=== PATIENT | male | born 1970 | race Caucasian/White ===

== ENCOUNTER 2020-02-18 14:24 | Emergency (ER) | payer BC ==
[2020-02-18] MEDS ORDERED: Ondansetron 4 MG/2 ML SDV IVPUSH ONE (15:02)
[2020-02-18] MEDS ORDERED: Sodium Chloride 0.9% 1,000 ML IV ONE (15:02)
--- NOTE | 2020-02-18 15:09 | EDM.PDOC ---
ED HPI GENERAL MEDICAL PROBLEM - General Chief Complaint: Respiratory Problem Stated Complaint: COVID + Time Seen by Provider: 02/18/20 14:54 Source of Information: Reports: Patient History Limitations: Reports: No Limitations - History of Present Illness INITIAL COMMENTS - FREE TEXT/NARRATIVE: This 49 yo male patient reports to the ED with increased shortness of breath, cough, nausea and vomiting. The patient reports his symptoms started about 2 weeks ago. The patient reports he tested positive for COVID-19 on 02/15/20. The patient reports he has been noticing increased symptoms over the past couple of days. The patient reports his older brother is currently in the ICU in [facility] due to COVID. The patient started taking Prednisone last evening, has used a nebulizer treatment at home (made him dizzy) and has used an inhaler several times with some symptom improvement. The patient reports increased shortness of breath when he has dry heaves. 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 [No Known Home Meds] 02/18/20 [History] Past Medical History HEENT History: Reports: None Cardiovascular History: Reports: None Respiratory History: Reports: None Gastrointestinal History: Reports: None Genitourinary History: Reports: None Musculoskeletal History: Reports: None Neurological History: Reports: Concussion, Head Trauma Psychiatric History: Reports: None Endocrine/Metabolic History: Reports: None Hematologic History: Reports: None Immunologic History: Reports: None Oncologic (Cancer) History: Reports: None Dermatologic History: Reports: None - Infectious Disease History Infectious Disease History: Reports: Chicken Pox - Past Surgical History Head Surgeries/Procedures: Reports: None HEENT Surgical History: Reports: THOMASIK Social & Family History - Tobacco Use Smoking Status *Q: Never Smoker Second Hand Smoke Exposure: No - Caffeine Use Caffeine Use: Reports: Coffee, Soda - Recreational Drug Use Recreational Drug Use: No ED ROS GENERAL - Review of Systems Review Of Systems: See Below Constitutional: Reports: Weakness, Fatigue HEENT: Reports: No Symptoms Respiratory: Reports: Shortness of Breath, Cough Cardiovascular: Reports: No Symptoms Endocrine: Reports: No Symptoms GI/Abdominal: Reports: Nausea, Vomiting : Reports: No Symptoms Musculoskeletal: Reports: No Symptoms Skin: Reports: No Symptoms Neurological: Reports: No Symptoms Psychiatric: Reports: No Symptoms Hematologic/Lymphatic: Reports: No Symptoms Immunologic: Reports: No Symptoms ED EXAM, GENERAL - Physical Exam Exam: See Below Exam Limited By: No Limitations General Appearance: Alert, WD/WN, Moderate Distress Eye Exam: Bilateral Eye: EOMI, Normal Inspection, PERRL Ears: Normal External Exam, Normal Canal, Hearing Grossly Normal, Normal TMs Nose: Normal Inspection, Normal Mucosa, No Blood Throat/Mouth: Normal Inspection, Normal Lips, Normal Teeth, Normal Gums, Normal Oropharynx, Normal Voice, No Airway Compromise Head: Atraumatic, Normocephalic Neck: Normal Inspection, Supple, Non-Tender, Full Range of Motion Respiratory/Chest: No Accessory Muscle Use, Chest Non-Tender, Rhonchi (faint throughout) Cardiovascular: Normal Peripheral Pulses, Regular Rate, Rhythm, No Edema, No Gallop, No JVD, No Murmur, No Rub GI/Abdominal: Normal Bowel Sounds, Soft, Non-Tender, No Organomegaly, No Distention, No Abnormal Bruit, No Mass, Pelvis Stable (Male) Exam: Deferred Rectal (Males) Exam: Deferred Back Exam: Normal Inspection, Full Range of Motion, NT Extremities: Normal Inspection, Normal Range of Motion, Non-Tender, Normal Capillary Refill, No Pedal Edema Neurological: Alert, Oriented, CN II-XII Intact, Normal Cognition, Normal Gait, Normal Reflexes, No Motor/Sensory Deficits Psychiatric: Normal Affect, Normal Mood Skin Exam: Warm, Dry, Intact, Normal Color, No Rash Lymphatic: No Adenopathy Course - Vital Signs Last Recorded V/S: Last Vital Signs Temp 38.7 C H 02/18/20 16:04 Pulse 99 02/18/20 14:31 Resp 16 02/18/20 14:31 BP 126/70 02/18/20 14:31 Pulse Ox 95 02/18/20 14:31 - Orders/Labs/Meds Orders: Active Orders 24 hr Category Date Time Status CULTURE BLOOD [BC] Stat Lab 02/18/20 15:01 Ordered Sodium Chloride 0.9% [Normal Saline] 1,000 ml Med 02/18/20 15:02 Active IV .BOLUS Medication Orders Sodium Chloride (Normal Saline) 1,000 mls @ 250 mls/hr IV .BOLUS ONE Stop: 02/18/20 19:01 Last Admin: 02/18/20 15:12 Dose: 250 mls/hr Documented by: PAT Labs: Laboratory Tests 02/18/20 02/18/20 02/18/20 Range/Units 15:10 15:10 15:10 WBC 5.5 (5.0-10.0) 10^3/uL RBC 5.43 (4.6-6.2) 10^6/uL Hgb 16.1 (14.0-18.0) g/dL Hct 44.8 (40.0-54.0) % MCV 82.5 (80-100) fL MCH 29.7 (27.0-34.0) pg MCHC 35.9 H (33.0-35.0) g/dL Plt Count 182 (150-450) 10^3/uL Neut % (Auto) 84.0 H (42.2-75.2) % Lymph % (Auto) 9.8 L (20.5-50.1) % [place] % (Auto) 6.2 (2-8) % Eos % (Auto) 0.0 L (1.0-3.0) % Baso % (Auto) 0.0 (0.0-1.0) % Sodium 137 (136-145) mmol/L Potassium 4.9 (3.5-5.1) mmol/L Chloride 101 (98-107) mmol/L Carbon Dioxide 27 (21-32) mmol/L Anion Gap 13.9 H (7-13) mEq/L BUN 21 H (7-18) mg/dL Creatinine 1.19 (0.70-1.30) mg/dL Est Cr Clr Drug Dosing 67.76 mL/min Estimated GFR (MDRD) > 60 BUN/Creatinine Ratio 17.6 (No establ ref range) Glucose 104 H (74-99) mg/dL Lactic Acid 1.2 (0.4-2.0) mmol/L Calcium 8.7 (8.5-10.1) mg/dL Total Bilirubin 1.5 H (0.2-1.0) mg/dL AST 56 H (15-37) U/L ALT 41 (16-63) U/L Alkaline Phosphatase 79 (46-116) U/L Total Protein 8.1 (6.4-8.2) g/dL Albumin 3.5 (3.4-5.0) g/dL Globulin 4.6 Albumin/Globulin Ratio 0.8 Meds: Medications Generic Name Dose Route Start Last Admin Trade Name Freq PRN Reason Stop Dose Admin Sodium Chloride 1,000 mls @ 250 mls/hr 02/18/20 15:02 02/18/20 15:12 Normal Saline IV 02/18/20 19:01 250 mls/hr .BOLUS ONE Administration Discontinued Medications Generic Name Dose Route Start Last Admin Trade Name Freq PRN Reason Stop Dose Admin Acetaminophen 650 mg 02/18/20 15:18 02/18/20 15:25 Tylenol PO 02/18/20 15:19 650 mg NOW ONE Administration Ondansetron HCl 4 mg 02/18/20 15:02 02/18/20 15:24 Zofran IVPUSH 02/18/20 15:03 4 mg ONETIME ONE Administration Departure - Departure Time of Disposition: 16:44 Disposition: DC/Tfer to Acute Hospital 02 Condition: Fair Clinical Impression: Multilobar lung infiltrate, Coronavirus infection, unspecified, Shortness of breath with exposure to COVID-19 virus - Discharge Information *PRESCRIPTION DRUG MONITORING PROGRAM REVIEWED*: Not Applicable *COPY OF PRESCRIPTION DRUG MONITORING REPORT IN PATIENT VIVEK: Not Applicable Referrals: PCP,None [Primary Care Provider] - Forms: Interfacility Transfer [facility] Care Plan Goals: Discussed the patient's history, examination, lab, and CT results with Dr. Greene. Dr. Greene accepted the patient for continued evaluation and management as an inpatient at [facility] in [place]. The patient will be transported by [facility]. Sepsis Event Note (ED) - Evaluation Sepsis Screening Result: Possible Sepsis Risk - Focused Exam Vital Signs: Vital Signs Temp Pulse Resp BP Pulse Ox 02/18/20 16:04 38.7 C H 02/18/20 15:18 38.7 C H 02/18/20 14:31 38.8 C H 99 16 126/70 95 - My Orders Last 24 Hours: My Active Orders 02/18/20 15:01 CULTURE BLOOD [BC] Stat 02/18/20 15:02 Sodium Chloride 0.9% [Normal Saline] 1,000 ml IV .BOLUS - Assessment/Plan Last 24 Hours: My Active Orders 02/18/20 15:01 CULTURE BLOOD [BC] Stat 02/18/20 15:02 Sodium Chloride 0.9% [Normal Saline] 1,000 ml IV .BOLUS
[2020-02-18] MEDS ORDERED: Acetaminophen 325 MG Tab PO ONE (15:18)
[2020-02-18 15:39] LABS: ANION GAP 13.9 mEq/L (7-13); CHLORIDE,CL 101 mmol/L (98-107); SODIUM,NA 137 mmol/L (136-145)
--- NOTE | 2020-02-18 16:15 | CT ---
EXAMINATION: Chest wo Cont SEX: Male AGE: 49 years CLINICAL HISTORY: 49-year-old 190 pound male complaining short of breath (SOB). Patient and his brother have tested "positive" for kline virus (Covid 19). O2 saturation 93% (on room air). Scan technique: Volume acquisition of data emergency unenhanced CT scan of the chest (bony thorax, lungs and mediastinum) obtained with the patient lying supine on the Siemens multi slice scanner [place], [place]. All data archived in the PACS system for storage, reformatting axial/sagittal/coronal planes and study (lung/mediastinal windows). Interpretation: ABNORMAL. 1. *Multilobar, groundglass consolidation without underlying air bronchograms, atelectasis or lobar collapse. 2. Normal cardiac silhouette. No pericardial effusion. 3. No pulmonary vascular congestion, alveolar edema or dependent pleural effusion. 4. No lung mass or significant hilar/mediastinal lymphadenopathy. 5. No pneumothorax or pneumomediastinum. Midline tracheobronchial airway unremarkable. 6. Mild kyphosis and hypertrophic spondylosis dorsal spine. Good bone mineral density appropriate to age and gender. 7. Gallbladder, unenhanced liver, stomach, spleen, pancreas and adrenal glands unremarkable i.e. negative. CONCLUSION: Abnormal CT appearance consistent with KLINE VIRUS INFECTION of the lungs. (Acute Pulmonary embolic disease with infarct a differential consideration)
[2020-02-18] MEDS ORDERED: Ketorolac 30 MG/ML SDV IVPUSH ONE (16:54)
== END 2020-02-18 17:37 ==
LOC: DL.ED 14:24
DX: U07.1 COVID-19 (principal); R91.8 Other nonspecific abnormal finding of lung field
CPT/HCPCS: 36415; 71250; 80053; 83605; 85025; 87040; 96361; 96374; 96375; 99285; A9270; J1885; J2405; J7030

== ENCOUNTER 2020-05-02 06:03 | Emergency (ER) | payer BC, OTHER ==
[2020-05-02] MEDS ORDERED: Acetaminophen 325 MG Tab PO ONE ×2 (06:27→06:43)
[2020-05-02] MEDS ORDERED: Sodium Chloride 0.9% 1,000 ML IV ONE (06:28)
[2020-05-02 07:00] LABS: PTT,PARTIAL THROMBOPLSTIN TIME 27.9 SEC (22.0-34.0)
[2020-05-02 07:02] LABS: ANION GAP 14.8 mEq/L (7-13); CHLORIDE,CL 102 mmol/L (98-107); SODIUM,NA 137 mmol/L (136-145)
[2020-05-02] MEDS ORDERED: Iopamidol 612 MG/ML 100 ML Bottle IVPUSH ONE (07:22)
--- NOTE | 2020-05-02 07:36 | EDM.PDOC ---
ED HPI GENERAL MEDICAL PROBLEM - General Chief Complaint: Gastrointestinal Problem Stated Complaint: 101.1* TEMP, BLOODY STOWLS, NAUSEA Time Seen by Provider: 05/02/20 07:15 Source of Information: Reports: Patient, RN, RN Notes Reviewed History Limitations: Reports: No Limitations - History of Present Illness INITIAL COMMENTS - FREE TEXT/NARRATIVE: Patient presents to ER with complaint of fever, muscle/body aches, abdominal bloating, and blood in the stool. Patient states the blood in the stool began Saturday morning while he was combining. Patient states he has had 4-5 stools a day with blood. States the fever began yesterday, muscle and body aches, chills. Patient denies history of colitis. States he was positive for COVID in February and hospitalized in ICU for that. Patient states some nausea and dry heaves yesterday, denies today. Denies severe abdominal pain, but admits to feeling of bloating. Patient was put on Xarelto after the COVID in February. Onset: Sudden Onset Date: 04/30/20 Duration: Constant, Getting Worse Location: Reports: Abdomen Generalized Pain Score (Numeric/FACES): 8 - Related Data Allergies Allergy/AdvReac Type Severity Reaction Status Date / Time No Known Allergies Allergy Verified 05/02/20 06:15 Home Meds: Home Meds Rivaroxaban [Xarelto] 10 mg PO DAILY 05/02/20 [History] Past Medical History HEENT History: Reports: None Cardiovascular History: Reports: None Respiratory History: Reports: None Gastrointestinal History: Reports: None Genitourinary History: Reports: None Musculoskeletal History: Reports: None Neurological History: Reports: Concussion, Head Trauma Psychiatric History: Reports: None Endocrine/Metabolic History: Reports: None Hematologic History: Reports: None Immunologic History: Reports: None Oncologic (Cancer) History: Reports: None Dermatologic History: Reports: None - Infectious Disease History Infectious Disease History: Reports: Novel Coronavirus - Past Surgical History Head Surgeries/Procedures: Reports: None HEENT Surgical History: Reports: ZACHARIAH Social & Family History - Tobacco Use Smoking Status *Q: Never Smoker Second Hand Smoke Exposure: No - Caffeine Use Caffeine Use: Reports: Coffee, Soda - Recreational Drug Use Recreational Drug Use: No ED ROS GENERAL - Review of Systems Review Of Systems: Comprehensive ROS is negative, except as noted in HPI. ED EXAM, GI/ABD - Physical Exam Exam: See Below Exam Limited By: No Limitations General Appearance: Alert, WD/WN, Mild Distress Eyes: Bilateral: Normal Appearance, EOMI Ears: Normal External Exam, Hearing Grossly Normal Nose: Normal Inspection Throat/Mouth: Normal Inspection, Normal Voice, No Airway Compromise Head: Atraumatic, Normocephalic Neck: Normal Inspection, Supple, Non-Tender, Full Range of Motion Respiratory/Chest: No Respiratory Distress, No Accessory Muscle Use, Chest Non- Tender, Wheezing (slight, right base) Cardiovascular: Normal Peripheral Pulses, Regular Rate, Rhythm, No Edema, No Gallop, No JVD, No Murmur, No Rub GI/Abdominal Exam: Normal Bowel Sounds, Soft, Non-Tender, No Organomegaly, No Distention, No Abnormal Bruit, No Mass, Pelvis Stable, Abnormal Bowel Sounds (hyperactive) (Male) Exam: Deferred Rectal (Males) Exam: Deferred Back Exam: Normal Inspection, Full Range of Motion, NT Extremities: Normal Inspection, Normal Range of Motion, Non-Tender, Normal Capillary Refill, No Pedal Edema Neurological: Alert, Oriented, CN II-XII Intact, Normal Cognition, Normal Gait, Normal Reflexes, No Motor/Sensory Deficits Psychiatric: Normal Affect, Normal Mood Skin Exam: Warm, Dry, Intact, Normal Color, No Rash Lymphatic: No Adenopathy Course - Vital Signs Last Recorded V/S: Last Vital Signs Temp 99.0 F 05/02/20 08:18 Pulse 108 H 05/02/20 06:07 Resp 18 05/02/20 06:07 BP 149/87 H 05/02/20 06:07 Pulse Ox 98 05/02/20 06:07 - Orders/Labs/Meds Orders: Active Orders 24 hr Category Date Time Status CULTURE BLOOD [BC] Stat Lab 05/02/20 06:30 Received CULTURE BLOOD [BC] Stat Lab 05/02/20 08:20 Received LACTATE SEPSIS W/ REFLEX [CHEM] Stat Lab 05/02/20 08:20 Received Blood Culture x2 Reflex Set [OM.PC] Stat Oth 05/02/20 08:51 Ordered Labs: Laboratory Tests 05/02/20 05/02/20 05/02/20 Range/Units 06:30 06:30 06:30 WBC 5.0 (5.0-10.0) 10^3/uL RBC 5.06 (4.6-6.2) 10^6/uL Hgb 15.1 (14.0-18.0) g/dL Hct 42.4 (40.0-54.0) % MCV 83.8 (80-100) fL MCH 29.8 (27.0-34.0) pg MCHC 35.6 H (33.0-35.0) g/dL Plt Count 156 (150-450) 10^3/uL Neut % (Auto) 82.8 H (42.2-75.2) % Lymph % (Auto) 8.4 L (20.5-50.1) % [place] % (Auto) 8.0 (2-8) % Eos % (Auto) 0.2 L (1.0-3.0) % Baso % (Auto) 0.6 (0.0-1.0) % PT (9.0-12.0) SEC INR (0.9-1.2) APTT (22.0-34.0) SEC D-Dimer, Quantitative 195 (0-400) ng/mL Sodium 137 (136-145) mmol/L Potassium 3.8 (3.5-5.1) mmol/L Chloride 102 (98-107) mmol/L Carbon Dioxide 24 (21-32) mmol/L Anion Gap 14.8 H (7-13) mEq/L BUN 14 (7-18) mg/dL Creatinine 1.04 (0.70-1.30) mg/dL Est Cr Clr Drug Dosing 76.68 mL/min Estimated GFR (MDRD) > 60 BUN/Creatinine Ratio 13.5 (No establ ref range) Glucose 114 H (74-99) mg/dL Lactic Acid (0.4-2.0) mmol/L Calcium 8.5 (8.5-10.1) mg/dL Total Bilirubin 2.0 H (0.2-1.0) mg/dL AST 24 (15-37) U/L ALT 47 (16-63) U/L Alkaline Phosphatase 78 (46-116) U/L Troponin I < 0.017 (0.000-0.056) ng/mL Total Protein 7.0 (6.4-8.2) g/dL Albumin 3.8 (3.4-5.0) g/dL Globulin 3.2 Albumin/Globulin Ratio 1.2 SARS CoV-2 RNA Rapid VIRGILIO (NEGATIVE) 05/02/20 05/02/20 05/02/20 Range/Units 06:30 06:30 06:40 WBC (5.0-10.0) 10^3/uL RBC (4.6-6.2) 10^6/uL Hgb (14.0-18.0) g/dL Hct (40.0-54.0) % MCV (80-100) fL MCH (27.0-34.0) pg MCHC (33.0-35.0) g/dL Plt Count (150-450) 10^3/uL Neut % (Auto) (42.2-75.2) % Lymph % (Auto) (20.5-50.1) % [place] % (Auto) (2-8) % Eos % (Auto) (1.0-3.0) % Baso % (Auto) (0.0-1.0) % PT 9.8 (9.0-12.0) SEC INR 1.0 (0.9-1.2) APTT 27.9 (22.0-34.0) SEC D-Dimer, Quantitative (0-400) ng/mL Sodium (136-145) mmol/L Potassium (3.5-5.1) mmol/L Chloride (98-107) mmol/L Carbon Dioxide (21-32) mmol/L Anion Gap (7-13) mEq/L BUN (7-18) mg/dL Creatinine (0.70-1.30) mg/dL Est Cr Clr Drug Dosing mL/min Estimated GFR (MDRD) BUN/Creatinine Ratio (No establ ref range) Glucose (74-99) mg/dL Lactic Acid 1.4 (0.4-2.0) mmol/L Calcium (8.5-10.1) mg/dL Total Bilirubin (0.2-1.0) mg/dL AST (15-37) U/L ALT (16-63) U/L Alkaline Phosphatase (46-116) U/L Troponin I (0.000-0.056) ng/mL Total Protein (6.4-8.2) g/dL Albumin (3.4-5.0) g/dL Globulin Albumin/Globulin Ratio SARS CoV-2 RNA Rapid VIRGILIO Negative (NEGATIVE) Meds: Medications Discontinued Medications Generic Name Dose Route Start Last Admin Trade Name Paramjit PRN Reason Stop Dose Admin Acetaminophen 650 mg 05/02/20 06:27 Tylenol PO 05/02/20 06:28 NOW ONE Acetaminophen 650 mg 05/02/20 06:43 05/02/20 06:48 Tylenol PO 05/02/20 06:44 650 mg NOW ONE Administration Sodium Chloride 1,000 mls @ 999 mls/hr 05/02/20 06:28 05/02/20 06:34 Normal Saline IV 05/02/20 07:28 999 mls/hr .BOLUS ONE Administration Metronidazole 500 mg/ Premix 100 mls @ 100 mls/hr 05/02/20 08:10 05/02/20 08:17 IV 05/02/20 09:09 100 mls/hr ONETIME ONE Administration Iopamidol 100 ml 05/02/20 07:22 05/02/20 07:41 Isovue-300 (61%) IVPUSH 05/02/20 07:23 75 ml ONETIME ONE Administration Departure - Departure Time of Disposition: 09:26 Disposition: Home, Self-Care 01 Condition: Fair Clinical Impression: Abdominal pain, Colitis - Discharge Information *PRESCRIPTION DRUG MONITORING PROGRAM REVIEWED*: No *COPY OF PRESCRIPTION DRUG MONITORING REPORT IN PATIENT VIVEK: No Instructions: Abdominal Pain, Adult, [id number], Colitis Forms: ED Department Discharge Additional Instructions: Hold Xarelto until seen by primary care provider Make an appointment with Dr. Goodrich after you leave today [facility] appointments phone number: [phone] RX: Flagyl NO ALCOHOL WHILE TAKING FLAGYL Return to the ER with any further problems or worsening May use Tylenol/Ibuprofen as directed for pain/fever Clear liquid diet, advancing slowly as tolerated Sepsis Event Note (ED) - Evaluation Sepsis Screening Result: No Definite Risk - Focused Exam Vital Signs: Vital Signs Temp Pulse Resp BP Pulse Ox 05/02/20 08:18 99.0 F 05/02/20 06:07 101.8 F H 108 H 18 149/87 H 98 - My Orders Last 24 Hours: My Active Orders 05/02/20 08:20 CULTURE BLOOD [BC] Stat LACTATE SEPSIS W/ REFLEX [CHEM] Stat 05/02/20 08:51 Blood Culture x2 Reflex Set [OM.PC] Stat - Assessment/Plan Last 24 Hours: My Active Orders 05/02/20 08:20 CULTURE BLOOD [BC] Stat LACTATE SEPSIS W/ REFLEX [CHEM] Stat 05/02/20 08:51 Blood Culture x2 Reflex Set [OM.PC] Stat
--- NOTE | 2020-05-02 08:00 | CT ---
PROCEDURE INFORMATION: Exam: CT Abdomen And Pelvis With Contrast Exam date and time: 05/02/2020 7:38 AM Age: 50 years old Clinical indication: Fever; Abdominal pain; Generalized; Additional info: Fever, abdominal pain, blood in stool TECHNIQUE: Imaging protocol: Computed tomography of the abdomen and pelvis with intravenous contrast. Radiation optimization: All CT scans at this facility use at least one of these dose optimization techniques: automated exposure control; mA and/or kV adjustment per patient size (includes targeted exams where dose is matched to clinical indication); or iterative reconstruction. Contrast material: ISOVUE 300; Contrast volume: 75 ml; Contrast route: INTRAVENOUS (IV); COMPARISON: No relevant prior studies available. FINDINGS: Liver: Moderately severe diffuse fatty infiltration of the liver with focal fatty sparing around the gallbladder fossa and hepatic hilum. Gallbladder and bile ducts: Normal. No calcified stones. No ductal dilation. Pancreas: Normal. No ductal dilation. Spleen: Normal. No splenomegaly. Adrenals: Normal. No mass. Kidneys and ureters: Normal. No hydronephrosis. Stomach and bowel: Unremarkable. No obstruction. No mucosal thickening. No evidence of acute colitis. Appendix: No evidence of appendicitis. Intraperitoneal space: Unremarkable. No free air. No significant fluid collection. Vasculature: Unremarkable. No abdominal aortic aneurysm. Lymph nodes: Unremarkable. No enlarged lymph nodes. Bladder: Unremarkable as visualized. Reproductive: Unremarkable as visualized. Bones/joints: Chronic degenerative discovertebral disease with loss of disc height and vacuum disc phenomenon is seen at L5/S1. There is anterolisthesis of L5 upon S1 by approximately 20% with bilateral chronic-appearing spondylolysis of L5 noted. Soft tissues: Unremarkable. IMPRESSION: 1. Moderately severe diffuse fatty infiltration of the liver with focal fatty sparing around the gallbladder fossa and hepatic hilum. 2. No obvious cause for the patient's fever or blood in stool identified. 3. 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 There is anterolisthesis of L5 upon S1 by approximately 20% with bilateral chronic-appearing spondylolysis of L5 noted.
[2020-05-02] MEDS ORDERED: metroNIDAZOLE/Normal Saline 500 MG in Premix Bag 100 BAG IV ONE (08:10)
== END 2020-05-02 09:27 | disposition home or self-care (01) ==
LOC: DL.ED 06:03
DX: K63.89 Other specified diseases of intestine (principal); Z09 Encounter for follow-up examination after completed treatment for conditions other than malignant neoplasm; Z86.19 Personal history of other infectious and parasitic diseases; Z20.828 Contact with and (suspected) exposure to other viral communicable diseases
CPT/HCPCS: 36415; 74177; 80053; 82272; 83605; 84484; 85025; 85379; 85610; 85730; 87040; 87635; 96361; 96365; 99284; A9270; J3490; J7030; Q9967; 99283; U0002

== ENCOUNTER → 2020-06-16 | Day surgery (SDC) | payer BC ==
[~2020-06-16] MED LIST: Dextrose 5%-0.45% NaCl 1,000 ML IV SCH; Midazolam 1 MG/ML 2 ML SDV IV ONE; Midazolam 1 MG/ML 2 ML SDV ONE; Sodium Chloride 0.9% 10 ML Syringe FLUSH PRN; fentaNYL 100 MCG/2 ML SDV IV ONE; fentaNYL 100 MCG/2 ML SDV ONE
--- NOTE | 2020-06-16 07:47 | OR ---
DATE: 06/16/2020 PROCEDURE: Total colonoscopy and pinch biopsy. INSTRUMENT USED: PCF-H190DL Olympus video colonoscope. PREMEDICATIONS: Fentanyl 100 mcg intravenous, Versed 3 mg intravenous, nasal O2 cannula. The procedure was done under pulse oximetry, BP recording, and youth nutritional monitor. INDICATION: The patient with rectal bleeding. Colonoscopic examination is done for detection of any polypoid lesions and removal, endoscopic hemostasis therapy if needed. DESCRIPTION OF PROCEDURE: Initial rectal exam was unremarkable. Rigid anoscopy showed small internal hemorrhoids without bleeding from them. Diminutive benign- appearing polyp was noted, removed by pinch biopsy. The colonoscope was passed with ease up to the ileocecal area. Photographs were taken of the normal- appearing cecum identified by landmarks of appendiceal orifice and double-bulged ileocecal folds. No bleeding was noted from any of the visualized areas at the commencement of the examination. The bowel preparation was found to be adequate. [place] scale 2 in the right and left colon, 3 in transverse colon, total score 7. No stricture. No vascular ectasia. No large isolated ulcerations seen. No evidence of diffuse inflammatory bowel disease in the form of friability, contact bleeding, or ulcerations. No polyp or tumor mass identified at the time of withdrawal of the scope. Probing the proximal sides of folds and flexures, using adequate distention and clearing up the stool material, withdrawal of the scope was made, cecum to rectum time over 6 minutes. No bleeding was noted from any of the visualized areas at the completion of examination. IMPRESSION: 1. Internal hemorrhoids. 2. Diminutive rectal polyp. The patient tolerated the procedure well. [facility] /[id number]
== END ==
LOC: DL.ENDO 05:52
PROVIDERS: ATTEND Internal Medicine Gastroenterology
DX: K62.1 Rectal polyp (principal); K64.8 Other hemorrhoids; E66.01 Morbid (severe) obesity due to excess calories; I25.10 Atherosclerotic heart disease of native coronary artery without angina pectoris; E80.6 Other disorders of bilirubin metabolism; Z86.19 Personal history of other infectious and parasitic diseases; Z68.31 Body mass index [BMI] 31.0-31.9, adult
CPT/HCPCS: 45380; J2250; J3010; J7042